=== PATIENT | female | born 1960 | race Caucasian/White ===

== ENCOUNTER 2019-08-05 13:37 | Emergency (ER) | payer MEDICAID, OTHER ==
[~2019-08-05] VITALS: Ht 172.7 cm; Wt 74.8 kg
[2019-08-05 14:25] VITALS: BP 114/66
[2019-08-05] MEDS ORDERED: KETOROLAC TROMETH 60MG/2ML VIAL IM ONE (17:00)
== END 2019-08-05 17:07 | disposition home or self-care (01) ==
LOC: ER 13:37
DX: M25.511 Pain in right shoulder (principal); F41.9 Anxiety disorder, unspecified; Z88.6 Allergy status to analgesic agent
CPT/HCPCS: 73030; 96372; 99283; J1885